=== PATIENT | male | born 1965 | race Caucasian/White ===

== ENCOUNTER 2017-01-18 17:01 | Emergency (ER) | payer BC ==
[2017-01-18] MEDS ORDERED: NORMAL SALINE 1000 ML 1,000 ML IV PRN (17:29)
--- NOTE | 2017-01-18 17:30 | ER Document Report ---
ED Medical Screen (RME) - General Chief Complaint: Pain All Over Stated Complaint: BODY ACHES Time Seen by Provider: 01/18/17 17:28 Notes: Patient complains of generalized body aches for approximately 2 days. He states he was seen in urgent care today and had fever of 101.7 there. He states he was referred to the emergency department. He was also told that there was blood in his urine when I tested it. Patient states that he had some nausea but no vomiting or diarrhea. Patient does not know of any tick bites but patient does have dogs. He denies any rashes. TRAVEL OUTSIDE OF THE [place] IN LAST 30 DAYS: No - Related Data Allergies/Adverse Reactions: No Known Allergies Allergy (Unverified 01/18/17 17:06) Home Medications: Current Home Medications Lisinopril [Prinivil 10 mg Tablet] 10 mg PO DAILY 01/18/17 [History] Past Medical History Renal/ Medical History: Denies: Hx Peritoneal Dialysis Physical Exam - Vital signs Vitals: Temp Pulse Resp BP Pulse Ox 98.4 F 94 18 125/80 98 01/18/17 17:06 01/18/17 17:06 01/18/17 17:06 01/18/17 17:06 01/18/17 17:06 Course - Vital Signs Vital signs: Temp Pulse Resp BP Pulse Ox 98.4 F 94 18 125/80 98 01/18/17 17:06 01/18/17 17:06 01/18/17 17:06 01/18/17 17:06 01/18/17 17:06
[2017-01-18 18:06] LABS: ABSOLUTE LYMPHOCYTES (AUTO) 1.6 10^3/uL (0.5-4.7); ABSOLUTE MONOCYTES (AUTO) 1.2 10^3/uL (0.1-1.4); ABSOLUTE NEUT (AUTO) 14.9 10^3/uL (1.7-8.2); BASOPHILS % (AUTO) 0.1 % (0-2); EOSINOPHILS % (AUTO) 0.1 % (0-6); HEMATOCRIT 44.9 % (37.9-51.0); HEMOGLOBIN 15.3 g/dL (13.5-17.0); LYMPHOCYTES % (AUTO) 8.8 % (13-45); MEAN CORPUSCULAR HEMOGLOBIN 30.4 pg (27.0-33.4); MEAN CORPUSCULAR VOLUME 89 fl (80-97); MONOCYTES % (AUTO) 6.6 % (3-13); RED BLOOD COUNT 5.02 10^6/uL (4.35-5.55); SEGMENTED NEUTROPHILS % (AUTO) 84.4 % (42-78); WHITE BLOOD COUNT 17.7 10^3/uL (4.0-10.5)
[2017-01-18] MEDS ORDERED: KETOROLAC TROMETHAMINE INJ/PF 30 MG/1 ML SDV IV ONE (18:15)
[2017-01-18 18:25] LABS: APPEARANCE,URINE SLIGHTLY-CLOUDY; BILIRUBIN,URINE NEGATIVE (NEGATIVE); GLUCOSE, URINE NEGATIVE (NEGATIVE); KETONES,URINE NEGATIVE (NEGATIVE); LEUKOCYTE ESTERASE,URINE SMALL (NEGATIVE); NITRITE,URINE NEGATIVE (NEGATIVE); PROTEIN,URINE NEGATIVE (NEGATIVE); URINE SPECIFIC GRAVITY 1.023
--- NOTE | 2017-01-18 18:37 | RADIOLOGY REPORT (SQ) ---
EXAM DESCRIPTION: CHEST PA/LAT COMPLETED DATE/TIME: 01/18/2017 6:27 pm REASON FOR STUDY: cough COMPARISON: None. EXAM PARAMETERS: NUMBER OF VIEWS: two views TECHNIQUE: Digital Frontal and Lateral radiographic views of the chest acquired. RADIATION DOSE: NA LIMITATIONS: none FINDINGS: LUNGS AND PLEURA: No opacities, masses or pneumothorax. No pleural effusion. MEDIASTINUM AND HILAR STRUCTURES: No masses or contour abnormalities. HEART AND VASCULAR STRUCTURES: Heart normal size. No evidence for failure. BONES: No acute findings. HARDWARE: None in the chest. OTHER: No other significant finding. IMPRESSION: NO SIGNIFICANT RADIOGRAPHIC FINDING IN THE CHEST. TECHNICAL DOCUMENTATION: JOB ID: [id number] [employer]- All Rights Reserved
[2017-01-18] MEDS ORDERED: NORMAL SALINE 1000 ML 1,000 ML IV ONE (18:53)
[2017-01-18] MEDS ORDERED: CEFTRIAXONE RTU 1 GM/D5W 50 ML IV ONE (19:07)
--- NOTE | 2017-01-18 19:21 | ER Document Report ---
ED General Pain - General Mode of Arrival: Ambulatory Information source: Patient TRAVEL OUTSIDE OF THE [place] IN LAST 30 DAYS: No - HPI Onset: Yesterday Onset/Duration: Gradual Quality of pain: Achy Pain Level: 4 Associated symptoms: Fever - today, Muscle aches Exacerbated by: Denies Relieved by: Denies Similar symptoms previously: No Recently seen / treated by doctor: Yes <SURINDER ZARATE - Last Filed: 01/18/17 19:16> <CHERELLE DIXON - Last Filed: 01/19/17 03:08> - General Chief Complaint: Pain All Over Stated Complaint: BODY ACHES Time Seen by Provider: 01/18/17 17:28 Notes: Patient presents complaining of generalized body aches that started yesterday. Patient states that he had a fever around 330 today of 101.3 at an urgent care. Patient states that at the urgent care they did a urinalysis which showed hematuria. The urgent care provider advised him to come here for evaluation for possible rhabdomyolysis. 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 Patient denies any abdominal pain, nausea, vomiting, or diarrhea. Patient reports mild occasional cough that started today. Patient states that last night he had some urinary frequency although the frequency has resolved today. Patient denies any sore throat. Patient reports that earlier today he had a headache although his headache pain is now resolved. Patient denies taking any Tylenol or Motrin today for his symptoms. 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 denies: Recent illness EENT: No symptoms reported. denies: Ear pain, Throat pain Cardiovascular: No symptoms reported. denies: Chest pain Respiratory: Cough. denies: Short of breath Gastrointestinal: No symptoms reported. denies: Abdominal pain, Nausea, Vomiting Genitourinary: Frequency - last pm, Hematuria - at urgent care today Male Genitourinary: No symptoms reported Musculoskeletal: Muscle pain Skin: No symptoms reported. denies: Rash Hematologic/Lymphatic: No symptoms reported Neurological/Psychological: Headaches - earlier today, now gone <SURINDER ZARATE - Last Filed: 01/18/17 19:16> Physical Exam - General General appearance: Appears well, Alert In distress: None - HEENT Head: Normocephalic Eyes: Normal Conjunctiva: Normal Pupils: PERRL Ears: Normal External canal: Normal Tympanic membrane: Normal Nasal: Normal Mouth/Lips: Normal Mucous membranes: Normal Pharynx: Normal. No: Erythema, Exudate Neck: Normal, Supple. No: Lymphadenopathy, Meningismus - Respiratory Respiratory status: No respiratory distress Chest status: Nontender Breath sounds: Nonproductive cough. No: Rales, Rhonchi, Stridor, Wheezing Chest palpation: Normal - Cardiovascular Rhythm: Regular Heart sounds: S1 appreciated, S2 appreciated Murmur: No - Abdominal Inspection: Normal Distension: No distension Tenderness: Nontender - Back Back: Tender - generalized muscle tenderness - Extremities General upper extremity: Normal inspection, Tender - generalized, Normal ROM General lower extremity: Normal inspection, Tender - generalized, Normal ROM - Neurological Neuro grossly intact: Yes Cognition: Normal Orientation: AAOx4 [place] Coma Scale Eye Opening: Spontaneous [place] Coma Scale Verbal: Oriented Jose L Coma Scale Motor: Extensor Response Jose L Coma Scale Total: 11 - Psychological Associated symptoms: Normal affect, Normal mood - Skin Skin Temperature: Warm Skin Moisture: Dry Skin Color: Normal <SURINDER ZARATE - Last Filed: 01/18/17 19:16> Course - Laboratory Result Diagrams: 01/18/17 17:43 01/18/17 17:43 <SURINDER ZARATE - Last Filed: 01/18/17 19:16> - Laboratory Result Diagrams: 01/18/17 17:43 01/18/17 19:05 <CHERELLE DIXON - Last Filed: 01/19/17 03:08> - Re-evaluation Re-evalutation: 01/18/17 19:21 bedside report and handoff given to lady AVILES (SURINDER ZARATE) 01/18/17 Chemistry is normal, CK is unremarkable, there are some white blood cells and leukocyte esterase in the urine but there are no nitrates, bacteria, patient had no urinary symptoms, no CVA tenderness on exam. Clear lungs, no pneumonia on x-ray. Soft abdomen. No nuchal rigidity. Patient alert, well-appearing. Discussed leukocytosis and possibilities with patient. He states he feels good and he is ready to leave. Patient was given a dose of Rocephin already. Given IV fluids. Discussed that he still could have underlying pneumonia, urinary tract infection, or an uncertain not obvious diagnosis. Patient will be covered with broad-spectrum with doxycycline, discussed return precautions including neck stiffness, severe headache, difficulty breathing, or any other concerning symptoms. Patient states satisfaction and agreement with plan. (CHERELLE DIXON) - Vital Signs Vital signs: Temp Pulse Resp BP Pulse Ox 98.6 F 81 18 122/78 95 01/18/17 20:28 01/18/17 20:28 01/18/17 20:28 01/18/17 20:28 01/18/17 20:28 - Laboratory Laboratory results interpreted by me: 01/18/17 01/18/17 01/18/17 17:43 17:43 19:05 WBC 17.7 H Seg Neutrophils % 84.4 H Lymphocytes % 8.8 L Absolute Neutrophils 14.9 H Sodium 135.7 L Urine Blood MODERATE H Urine Urobilinogen 2.0 H Ur Leukocyte Esterase SMALL H Discharge <SURINDER ZARATE - Last Filed: 01/18/17 19:16> <CHERELLE DIXON - Last Filed: 01/19/17 03:08> - Discharge Clinical Impression: Body aches Fever Qualifiers: Fever type: unspecified Qualified Code(s): R50.9 - Fever, unspecified Condition: Stable Disposition: HOME, SELF-CARE Additional Instructions: The exact cause of your fever and elevated white blood cell count is not known at this time. Take Tylenol or ibuprofen for fever and body aches, take the doxycycline as prescribed, you were given a dose of Rocephin here tonight. Rest, hydrate. We have blood and urine cultures growing in our lab. Follow-up with primary care. Return to the emergency department immediately for any concerning worsening symptoms including severe headache, stiffness of the neck, abdominal pain, difficulty breathing, a strange rash, or any other concerning symptoms. Prescriptions: Doxycycline Hyclate 100 mg PO BID #14 capsule Forms: Return to Work Referrals: ROLY JEWELL PA-C [Primary Care Provider] - Follow up as needed
[2017-01-18 19:46] LABS: ALANINE AMINOTRANSFERASE 47 U/L (21-72); ALBUMIN 3.7 g/dL (3.5-5.0); ALKALINE PHOSPHATASE 59 U/L (38-126); ANION GAP 11 (5-19); ASPARTATE AMINO TRANSFERASE 20 U/L (17-59); BILIRUBIN,DIRECT 0.3 mg/dL (0.0-0.4); BILIRUBIN,TOTAL 1.1 mg/dL (0.2-1.3); BLOOD UREA NITROGEN 13 mg/dL (7-20); CALCIUM 8.4 mg/dL (8.4-10.2); CARBON DIOXIDE 23 mmol/L (22-30); CHLORIDE 102 mmol/L (98-107); CREATINE KINASE 70 U/L (55-170); CREATININE RESULT 1.05 mg/dL (0.52-1.25); GLUCOSE 98 mg/dL (75-110); SODIUM 135.7 mmol/L (137-145); TOTAL PROTEIN 6.6 g/dL (6.3-8.2)
[2017-01-18] MEDS ORDERED: DOXYCYCLINE HYCLATE 100 MG TABLET PO ONE (20:20)
[2017-01-18 20:31] VITALS: BP 122/78
== END 2017-01-18 21:11 | disposition home or self-care (01) ==
LOC: ER 17:01
DX: M79.1 Myalgia (principal); R50.9 Fever, unspecified; R05 Cough; I10 Essential (primary) hypertension; F17.200 Nicotine dependence, unspecified, uncomplicated
CPT/HCPCS: 99284; 96361; 96374; 96375; 36415; 87040; 87086; 82550; 85025; 87088; 80053; 81001; 87186; 71020; J1885; J7030; J0696

== ENCOUNTER 2018-02-09 09:01 | Day surgery (SDC) | payer BC ==
[2018-02-09] MEDS ORDERED: MIDAZOLAM 2 MG/2 ML INJ ONE (10:07)
[2018-02-09] MEDS ORDERED: PROPOFOL INJ 200 MG/20 ML VIAL IV ONE (10:07)
--- NOTE | 2018-02-09 11:19 | Operative Report ---
Operative Report DATE OF SURGERY: 02/09/18 Operative Report: The risks, benefits and alternatives of the procedure including risks of bleeding, perforation requiring surgery are explained to the patient in detail and informed consent is obtained. Patient is taken back to the operating room. Timeout was called. Propofol medication is administered. A rectal examination is done which did not reveal any masses, tears or fissures. An Olympus videoscope was inserted into the patient's rectum. The scope was then carefully advanced all the way to the cecum. The cecum was identified by the usual anatomical landmarks including the appendiceal office and the ileocecal valve. Prep is good. Scope was then sequentially pulled back via the various segments of the colon including the ascending colon fracture, transverse colon, splenic flexure, descending colon and finally to the rectosigmoid portions of the colon. Retroflexion maneuvers performed. PREOPERATIVE DIAGNOSIS: Colon surveillance, family history of colorectal cancer POSTOPERATIVE DIAGNOSIS: Possible sessile polyp in the transverse colon status post biopsy. Diverticulosis both left and right side. Internal hemorrhoids OPERATION: Colonoscopy with biopsy SURGEON: SURESH MARINO ANESTHESIA: LMAC TISSUE REMOVED OR ALTERED: As noted above. COMPLICATIONS: None. ESTIMATED BLOOD LOSS: None. INTRAOPERATIVE FINDINGS: As noted above. PROCEDURE: Patient tolerated procedure well. No immediate postprocedure complications are noted. Patient discharged in good condition. Discharge date 02/09/2018. Discharge diet: Regular. Discharge activity: Regular. 2-3 week follow-up to discuss findings. Patient is instructed call the office or proceed to the emergency room should there be any further problems or questions. Wait on the pathology. 3-5 year surveillance colonoscopy.
--- NOTE | 2018-02-09 12:38 | EKG REPORT ---
SEVERITY:- NORMAL ECG - SINUS RHYTHM : Confirmed by: James Norman MD 09-Feb-2018 12:37:43
[2018-02-09 12:41] VITALS: BP 113/75
== END 2018-02-09 12:40 | disposition home or self-care (01) ==
LOC: OROUT 09:01
PROVIDERS: ATTEND Internal Medicine Gastroenterology
DX: Z12.11 Encounter for screening for malignant neoplasm of colon (principal); K57.30 Diverticulosis of large intestine without perforation or abscess without bleeding; K64.8 Other hemorrhoids; I10 Essential (primary) hypertension; Z80.0 Family history of malignant neoplasm of digestive organs; Z13.89 Encounter for screening for other disorder
CPT/HCPCS: 45380; 88305 ×2; 93005; 93010; J2250; J2704; 811

== ENCOUNTER → 2018-05-30 | Outpatient (CLI) | payer BC ==
--- NOTE | 2018-05-30 08:55 | RADIOLOGY REPORT (SQ) ---
EXAM DESCRIPTION: MRI LT LOWER JOINT WITHOUT COMPLETED DATE/TIME: 05/30/2018 8:02 am REASON FOR STUDY: PAIN IN LEFT KNEE (M25.562) M25.562 PAIN IN LEFT KNEE COMPARISON: None. TECHNIQUE: Leftknee images acquired and stored on PACS. Multiplanar images include fat sensitive se quences as T1, water sensitive sequences as FST2 or STIR, cartilage sensitive sequences as FSPD, and gradient echo sequences. LIMITATIONS: None. FINDINGS: JOINT AND BURSAE: No effusion. BONE CORTEX AND MARROW: No alteration of signal to suggest marrow replacement. No worrisome bone lesi ons. No occult fracture. ACL: Torn, best shown on sagittal image 13 PCL: Intact. MCL: Intact. No periligamentous edema or fluid. LCL: Intact. 2 x 1 cm septated cyst between the lateral edge lateral meniscus and the lateral collat eral ligament on coronal image 16. MEDIAL MENISCUS: Diffuse horizontal tear mid body and posterior horn medial meniscus best shown on co amber images 16 through 19. No parameniscal cyst. LATERAL MENISCUS: No tears. No abnormal signal. MEDIAL COMPARTMENT: Mild chondromalacia. No bone bruises or reactive marrow edema. No osteophytes. LATERAL COMPARTMENT: Cartilage preserved. No bone bruises or reactive marrow edema. No osteophytes. PATELLA: High-grade medial patellar facet chondromalacia. No subchondral cysts. Medial and lateral re tinacula intact. EXTENSOR MECHANISM: Intact. Quadriceps and patella tendons normal. SOFT TISSUES: Adjacent muscles and subcutaneous tissues normal. Normal flow void in popliteal artery and vein. OTHER: No other significant finding. IMPRESSION: Torn anterior cruciate ligament TECHNICAL DOCUMENTATION: JOB ID: [id number]- All Rights Reserved Reading location - IP/workstation name: [email or web address]
== END ==
LOC: RAD 07:08
PROVIDERS: ATTEND Orthopaedic Surgery
DX: M25.562 Pain in left knee (principal); S83.512A Sprain of anterior cruciate ligament of left knee, initial encounter; X58.XXXA Exposure to other specified factors, initial encounter

== ENCOUNTER → 2018-07-07 | Outpatient (CLI) | payer BC, OTHER ==
--- NOTE | 2018-07-07 13:43 | RADIOLOGY REPORT (SQ) ---
EXAM DESCRIPTION: L SPINE WHOLE COMPLETED DATE/TIME: 07/07/2018 1:07 pm REASON FOR STUDY: BACK STRAIN S39.012D STRAIN OF MUSCLE, FASCIA AND TENDON OF LOWER BACK, COMPARISON: None. NUMBER OF VIEWS: Five views including obliques. TECHNIQUE: AP, lateral, oblique, and sacral radiographic images acquired of the lumbar spine. LIMITATIONS: None. FINDINGS: MINERALIZATION: Normal. SEGMENTATION: Normal. No transitional anatomy. ALIGNMENT: Normal. VERTEBRAE: Maintained height. No fracture or worrisome bone lesion. DISCS: Multilevel osteophytes. Mild disc space narrowing at T12-L1. POSTERIOR ELEMENTS: Pedicles and facets are intact. No pars defect or posterior arch defects. HARDWARE: None in the spine. PARASPINAL SOFT TISSUES: Normal. PELVIS: Intact as visualized. No fractures or worrisome bone lesions. SI joints intact. OTHER: No other significant finding. IMPRESSION: Multilevel mild degenerative discs. No acute fracture. TECHNICAL DOCUMENTATION: JOB ID: [id number] [employer]- All Rights Reserved Reading location - IP/workstation name: [email or web address]
== END ==
LOC: RAD 12:47
PROVIDERS: ATTEND Family Medicine
DX: S39.012D Strain of muscle, fascia and tendon of lower back, subsequent encounter (principal); X58.XXXD Exposure to other specified factors, subsequent encounter
CPT/HCPCS: 72110